=== PATIENT | female | born 1960 | race Caucasian/White ===

== ENCOUNTER 2018-07-21 13:41 | Emergency (ER) | payer BC, OTHER ==
[2018-07-21 15:00] VITALS: BP 133/69
--- NOTE | 2018-07-21 15:23 | UC ---
Knee Pain HPI - HPI Summary HPI Summary: 58 y/o female presents to the urgent care c/o left knee pain w/ mild swelling s/ p tipping over her dog last night and falling around 2000PM Friday07/19/2018. Pt reports she landed on her left knee. Pain is 0/10 w/ rest, but 4/10 sharp w/ movement and walking. She has a mild abrasion over the lateral side of patella. Pt has taken Motrin PO to alleviate symptoms and applied ice. Pt deneis numbness or tingling sensation over the left lower extremity, calf pain, SOB, chest pain, abdominal pain N/V/D. - History of Current Complaint Chief Complaint: UCLowerExtremity Stated Complaint: S/P FALL LEFT KNEE Time Seen by Provider: 07/21/18 15:21 Hx Obtained From: Patient Onset/Duration: Sudden Onset, Lasting Days - 2 days, Still Present, Worse Since - yesterday Severity Initially: Mild Severity Currently: Mild Pain Intensity: 4 Pain Scale Used: 0-10 Numeric Character: Sharp - w/ walking Aggravating Factor(s): Movement Alleviating Factor(s): Rest, Cold, OTC Meds Associated Signs And Symptoms: Positive: Swelling - mild. Negative: Weakness, Numbness, Tingling Able to Bear Weight: Yes - Risk Factors Septic Arthritis Risk Factor: Negative Gout Risk Factor: Negative - Allergies/Home Medications Allergies/Adverse Reactions: Allergies Allergy/AdvReac Type Severity Reaction Status Date / Time MS Morphine [Morphine] Allergy Hives Verified 02/22/15 16:22 MS Pollen Extract Allergy Eyes Verified 02/22/15 16:22 [Pollen Extract] Itchy/Swollen/Red/Watery MS Povidone Iodine Allergy Hives Verified 02/22/15 16:22 [From Betadine] Home Medications: Home Medications Gemfibrozil TAB* [Lopid TAB*] 600 mg PO BID 07/21/18 [History Confirmed ] PMH/Surg Hx/FS Hx/Imm Hx Previously Healthy: Yes Endocrine History: Dyslipidemia Cardiovascular History: Hypertension - Surgical History Surgical History: Yes Surgery Procedure, Year, and Place: , 1984 1986 1988 - Family History Family History: Dyslipidemia - Social History Occupation: Employed Full-time Lives: With Family Alcohol Use: Daily Substance Use Type: None Smoking Status (MU): Never Smoked Tobacco Review of Systems Constitutional: Negative Skin: Other - mild swelling over the left knee Eyes: Negative ENT: Negative Respiratory: Negative Cardiovascular: Negative Gastrointestinal: Negative Genitourinary: Negative Motor: Negative Neurovascular: Negative Musculoskeletal: Decreased ROM - left knee, Other: - left knee pain s/p fall Neurological: Negative Psychological: Negative Is Patient Immunocompromised?: No All Other Systems Reviewed And Are Negative: Yes Physical Exam - Summary Physical Exam Summary: Vital Signs Reviewed: Yes General: well developed, well nourished female sitting in the examining table w/ o any apparent distress Eyes: Positive: Conjunctiva Clear - PERRLA, EOMI, fundi grossly normal ENT: Positive: Normal ENT inspection, Hearing grossly normal, Pharynx normal, TMs normal Neck: Positive: Supple, Nontender, No Lymphadenopathy Respiratory: Positive: Chest nontender, Lungs clear, Normal breath sounds, No respiratory distress Cardiovascular: Positive: RRR, No Murmur, Pulses Normal, Brisk Capillary Refill Abdomen Description: Positive: Nontender, No Organomegaly, Soft. Negative: CVA Tenderness (R), CVA Tenderness (L) Bowel Sounds: Positive: Present Musculoskeletal: Positive: Strength Intact, No Edema, LF - Knee: Pt is able to bear weight and ambulate with mild limping. Mild abrasion over the lateral side of patella w/ mild ecchymosis, no obvious effusion. No overlying erythema or warmth. The L knee is without obvious asymmetry or deformity when compared with the R knee. Mild decreased ROM of LF knee due to pain. No tenderness to palpation of the patella, no effusion or ballottement. No tenderness over the infrapatellar tendon. Point tenderness over the lateral joint line, and lateral tibial plateaus. No tenderness over the proximal fibular head, No tenderness, fullness or mass of the popliteal fossa. No quadriceps tenderness. No laxity of the ACL. PCL, MCL, or LCL. no collateral ligament laxity to valgus or varus stress. Negative Ronen/Drawer sign. Negative Cara. Distal motor and neurovascular status intact. Neurological Exam: Normal Psychological Exam: Normal Skin Exam: Normal Triage Information Reviewed: Yes Vital Signs: Initial Vital Signs Temp 98.9 F 07/21/18 14:54 Pulse 87 07/21/18 14:54 Resp 16 07/21/18 14:54 BP 133/69 07/21/18 14:54 Pulse Ox 100 07/21/18 14:54 Knee Pain Course/Dx - Course Course Of Treatment: 58 y/o female presents to the urgent care c/o left knee pain w/ mild swelling s/p tipping over her dog last night and falling around 2000PM Friday07/19/2018. Pt reports she landed on her left knee. Pain is 0/10 w / rest, but 4/10 sharp w/ movement and walking. She has a mild abrasion over the lateral side of patella. Pt has taken Motrin PO to alleviate symptoms and applied ice. Pt deneis numbness or tingling sensation over the left lower extremity, calf pain, SOB, chest pain, abdominal pain N/V/D. Hx obtained. LF knee X-ray ordered. Impression:No acute osseous injury. Pt's knee immobilized w / izabella bandage and Advised RICE. Avoid strenuous exercise or standing for long period of time. Pt Rx Ibuprofen for pain and advised to f/u with Orthopedic Dr Suero or PCP in 1 week if not improvment of symptoms for further evaluation and treatment. PT understood and agreed with D/C instructions. - Differential Dx/Diagnosis Differential Diagnosis/HQI/PQRI: Contusion, Dislocation, Fracture (Closed), Gout , Sprain, Strain Provider Diagnoses: 1- Left knee pain s/p fall. 2- Left knee sprain Discharge - Sign-Out/Discharge Documenting (check all that apply): Patient Departure - D/C home All imaging exams completed and their final reports reviewed: Yes - Discharge Plan Condition: Stable Disposition: HOME Prescriptions: Ibuprofen TAB* [Motrin TAB* 600 MG] 600 mg PO Q6H PRN #30 tab PRN Reason: Pain Patient Education Materials: Knee Sprain (ED) Forms: *Work Release Referrals: [facility] [place] [facility] [Outside] - 1 Week Michelle Suero MD [Medical Doctor] - 1 Week Additional Instructions: 1-Please take medications as directed to alleviate pain and swelling. 2-Please apply ice, keep your knee immobilized with the splint. 3- Please f/u with Orthopedic or your PCP in 1 week is not improvement of symptoms for further evaluation and treatment. - Billing Disposition and Condition Condition: STABLE Disposition: Home
--- NOTE | 2018-07-21 16:12 | RAD ---
INDICATION: Left knee injury. TECHNIQUE: 4 views of the left knee were obtained. FINDINGS: The bones are in normal alignment. No joint effusion or fracture is seen. Joint spaces appear maintained. IMPRESSION: NO EVIDENCE FOR FRACTURE.
--- NOTE | 2018-07-22 11:00 | UC ---
- Progress Note Progress Note: knee x-ray fro 07/21/18 read as nad no change in care Discharge - Sign-Out/Discharge Documenting (check all that apply): Patient Departure All imaging exams completed and their final reports reviewed: Yes - Discharge Plan Condition: Stable Disposition: HOME Prescriptions: Ibuprofen TAB* [Motrin TAB* 600 MG] 600 mg PO Q6H PRN #30 tab PRN Reason: Pain Patient Education Materials: Knee Sprain (ED) Forms: *Work Release Referrals: [facility] [place] [facility] [Outside] - 1 Week Michelle Suero MD [Medical Doctor] - 1 Week Additional Instructions: 1-Please take medications as directed to alleviate pain and swelling. 2-Please apply ice, keep your knee immobilized with the splint. 3- Please f/u with Orthopedic or your PCP in 1 week is not improvement of symptoms for further evaluation and treatment. - Billing Disposition and Condition Condition: STABLE Disposition: Home
== END 2018-07-21 16:41 | disposition home or self-care (01) ==
LOC: UCCORT 13:41
DX: M25.562 Pain in left knee (principal); W01.0XXA Fall on same level from slipping, tripping and stumbling without subsequent striking against object, initial encounter; Y93.9 Activity, unspecified; Y92.009 Unspecified place in unspecified non-institutional (private) residence as the place of occurrence of the external cause; Z88.5 Allergy status to narcotic agent; I10 Essential (primary) hypertension
CPT/HCPCS: 99202; G0463